=== PATIENT | female | born 1980 | race Caucasian/White ===

== ENCOUNTER 2019-08-07 09:30 | Emergency (ER) | payer BC, SELFPAY ==
[2019-08-07 09:32] VITALS: BP 120/84; PULSE 103; RESP 15; TEMP 36.1; O2SAT 98
[2019-08-07 09:51] LABS: Basophils Percent Auto 0.4 % (0.2-1.2); Eosinophils Percent Auto 0.4 % (0-4.4); Hematocrit 42.7 % (37.0-47.0); Hemoglobin 14.1 g/dL (12.0-15.0); Immature Granulocyte Absolute 0.02 K/mm3 (0.00-0.031); Immature Granulocyte Percent A 0.3 % (0-0.5); Lymphocytes Absolute Auto 1.65 K/mm3 (0.9-3.2); Lymphocytes Percent Auto 22.9 % (18.3-44.2); Mean Corpuscular Hemoglobin 29.1 pg (26-34); Mean Corpuscular Volume 88.2 fl (80-100); Monocytes Absolute Auto 0.4 K/mm3 (0.1-0.6); Monocytes Percent Auto 5.7 % (2.6-8.5); Neutrophils Absolute Auto 5.1 K/mm3 (1.3-6.7); Neutrophils Percent Auto 70.3 % (45.5-73.1); Platelet Count Result 235 k/mm3 (150-375); Red Blood Count 4.84 M/mm3 (4.2-5.4); Red Cell Distribution Width 13.4 % (11.5-14.5); White Blood Count 7.2 K/mm3 (4.5-10.0)
[2019-08-07 10:11] LABS: Alanine Aminotransferase 26 U/L (4-35); Albumin Level 4.5 g/dL (3.5-5.1); Alkaline Phosphatase 85 U/L (38-126); Aspartate Amino Transferase 27 U/L (14-36); Bilirubin,Total 0.4 mg/dL (0.2-1.3); Blood Urea Nitrogen 14 mg/dL (7-17); Calcium 9.5 mg/dL (8.4-10.2); Carbon Dioxide 25 mmol/L (22-30); Chloride 107 mmol/L (98-107); Estimated CRCL calculation 153 ml/min; Estimated Glomerular Filt Rate > 60; Glucose 102 mg/dL (65-105); Lipase 144 U/L (23-300); Sodium 143 mmol/L (137-145)
[2019-08-07 10:23] LABS: Add Urine Microscopic? YES; Appearance Urine Clear (Clear); Bilirubin Urine Negative (Negative); Blood Urine Negative (Negative); Color Urine Yellow (Yellow); Glucose Urine UA Negative (Negative); Ketones Urine Negative (Negative); Leukocyte Esterase Ur Negative LEU/UL (Negative); Nitrate Urine Negative (Negative); Protein Urine Negative (Negative); RBC Urine 0-2 /hpf (0-2); Specific Grav Ur 1.017 (1.001-1.035); Squamous Epithelial Cell Urine Occasional /hpf (Few); Urobilinogen Urine Negative mg/dL (<2.0); WBC Urine 0-3 /hpf
[2019-08-07 11:28] VITALS: BP 112/61; PULSE 88
[2019-08-07 11:30] VITALS: BP 124/81; PULSE 88
[2019-08-07 11:32] VITALS: BP 111/64; PULSE 90
--- NOTE | 2019-08-07 11:40 | ED.NAVMDI ---
HPI - Nausea/Vomiting/Diarrhea General Chief complaint: Nausea/Vomiting/Diarrhea Stated complaint: vomiting blood Time Seen by Provider: 08/07/19 11:39 Source: patient and RN notes reviewed Mode of arrival: ambulatory Limitations: no limitations History of Present Illness HPI Narrative: Pt is a 39 y/o female who presents to the ED with c/o hematemesis which began this morning. Pt states she has vomited twice this morning with blood in her emesis both times. She reports heavy blood in both episodes of her emesis. She states she drank alcohol and ate pizza which she believes could be causing her symptoms. Pt reports diffuse ABD pain shortly after emesis. Pt also reports nausea, but denies diarrhea, dizziness, syncope, or SOB. MD elicited complaint: other (hematemesis) Onset (ago): hour(s) (this morning) Description of vomiting: bloody Associated nausea: Yes Associated abdominal pain: Yes Location of pain: diffuse Radiation: does not radiate Pain consistency: constant Exacerbating factors: none Relieving factors: none Associated symptoms: nausea/vomiting Related Data Home Medications Medication Instructions Recorded Confirmed cholecalciferol (vitamin D3) 3,000 3,000 unit PO DAILY 07/24/19 unit tablet vits 75-iron 28 mg-folic pkg PO 07/24/19 acid 800 mcg-omega-3 oral combo pack valacyclovir 500 mg tablet 500 mg PO DAILY 07/24/19 Allergies Allergy/AdvReac Type Severity Reaction Status Date / Time latex Allergy Unknown Unknown Verified 07/24/19 13:00 sidra Allergy Unknown Swelling Verified 07/24/19 13:00 kiwi Allergy Itching Verified 08/07/19 09:37 Review of Systems Review of Systems: All systems reviewed & are unremarkable except as noted in HPI and below Respiratory: Respiratory: Denies dyspnea Gastrointestinal: Gastrointestinal: Reports abdominal pain (diffuse), Denies diarrhea, Reports nausea and Reports hematemesis Neurologic: Denies dizziness and Denies syncope PMFSH Social History Social History Smoking status: Former smoker Second hand tobacco smoke exposure: Yes Smoking end date: 06/21/11 Alcohol intake: current Substance use type: marijuana Gender identity (if verbalized by the patient): Female Exam Narrative: Exam Narrative: GENERAL: Well-appearing, well-nourished, and in no acute distress. HEAD: Normocephalic, atraumatic. EYES: PERRLA and EOMI. ENT: Nares clear, . Mucous membranes moist. NECK: Supple. CHEST: Clear to auscultation. No respiratory distress. HEART: Regular rate and rhythm. No murmur heard. Normal peripheral pulses. ABDOMEN: Soft, non tender, non distended, normal active bowel sounds. EXTREMITIES: Normal range of motion. No edema. SKIN: Warm, dry, no rash. NEURO: No focal deficits. Alert and oriented x3. PSYCH: Normal mood and affect. Course Course Emergency Course: Patient had no further episodes of nausea vomiting or hematemesis since Vital Signs Vital signs: Vital Signs Temperature 36.1 C L 08/07/19 09:32 Pulse Rate 103 H 08/07/19 09:32 Respiratory Rate 15 08/07/19 09:32 Blood Pressure 120/84 08/07/19 09:32 Pulse Oximetry 98 08/07/19 09:32 Temperature 36.1 C L 08/07/19 09:32 Pulse Rate 73 08/07/19 12:44 Respiratory Rate 16 08/07/19 12:44 Blood Pressure 141/71 H 08/07/19 12:44 Pulse Oximetry 100 08/07/19 12:44 MDM - Nausea/Vomiting/Diarrhea Lab Data Result diagrams: 08/07/19 09:42 08/07/19 09:42 Labs: Lab Results 08/07/19 08/07/19 08/07/19 Range/Units 09:42 09:42 09:51 WBC 7.2 (4.5-10.0) K/mm3 RBC 4.84 (4.2-5.4) M/mm3 Hgb 14.1 (12.0-15.0) g/dL Hct 42.7 (37.0-47.0) % MCV 88.2 (80-100) fl MCH 29.1 (26-34) pg MCHC 33.0 (32-36) g/dl RDW 13.4 (11.5-14.5) % Plt Count 235 (150-375) k/mm3 MPV 10.0 (7.4-10.4) fl Immature Gran % (Auto) 0.3 (0-0.5) % Neut % (Aut
[2019-08-07] MEDS: SODIUM CHLORIDE 0.9% IV 1,000 ML 999 ML IV CONT (12:08)
[2019-08-07] MEDS: PANTOPRAZOLE SODIUM IV 40 MG VIAL IV PUSH (12:08)
[2019-08-07] MEDS: ONDANSETRON INJ 4 MG/2 ML VIAL IV PUSH (12:09)
[2019-08-07 12:44] VITALS: BP 141/71; PULSE 73; RESP 16; O2SAT 100
--- NOTE | 2019-08-07 13:06 | PC.NURSE ---
denies nausea. states abdomen feels hot inside
[2019-08-07 14:08] VITALS: BP 126/71; PULSE 68; RESP 18; O2SAT 99
== END 2019-08-07 14:11 | disposition home or self-care (01) ==
PROVIDERS: Emergency Provider Family Medicine; PCP Family Medicine
DX: K29.70 Gastritis, unspecified, without bleeding (principal); Z87.891 Personal history of nicotine dependence
CPT/HCPCS: 36415; 80053; 81001; 81025; 83690; 85025; 96361; 96374; 96375; 99284; C9113; J2405; J7030

== ENCOUNTER 2019-10-31 06:05 | Outpatient (CLI) | payer BC, SELFPAY ==
[2019-10-31 18:34] LABS: SARS-CoV-2 RNA PCR Negative
== END 2019-10-31 06:06 | disposition home or self-care (01) ==
LOC: ANHCOVIDDT 06:09
PROVIDERS: PCP Family Medicine; Visit Provider Internal Medicine Gastroenterology
DX: Z01.818 Encounter for other preprocedural examination (principal); Z11.59 Encounter for screening for other viral diseases
CPT/HCPCS: 87635; C9803; U0003

== ENCOUNTER 2019-11-02 02:28 | Day surgery (SDC) | payer BC, SELFPAY ==
[2019-10-30 15:40] VITALS: BMI 41.6
[2019-11-02 07:13] VITALS: BP 111/69; PULSE 104; RESP 16; TEMP 36.4; O2SAT 97; BMI 41.6
[2019-11-02] MEDS: LACTATED RINGERS 1,000 ML 150 ML IV CONT (07:17)
--- NOTE | 2019-11-02 07:48 | WPDANESEPPF ---
Anes - Initial Pre Proc Eval Procedure: Operation Date: 11/02/19 08:00 Proposed Procedures p Esophagogastroduodenoscopy - Jase Cueto MD Date/Time: 11/02/19 07:48 Surgeon: Jase Cueto MD Pre Op Diagnosis: Hematemesis Patient Data Age: 39 Gender: F Height: 5 ft 4 in Weight: 110.1 kg Last Vital Signs Temp 36.4 C 11/02/19 07:13 Pulse 104 H 11/02/19 07:13 Resp 16 11/02/19 07:13 BP 111/69 11/02/19 07:13 Pulse Ox 97 11/02/19 07:13 Allergies Allergy/AdvReac Type Severity Reaction Status Date / Time kiwi Allergy Severe throat Verified 11/02/19 07:10 swelling and itching latex Allergy Severe swell and Verified 11/02/19 07:10 itchy in area touched sidra Allergy Severe Swelling Verified 11/02/19 07:10 in mouth Home Medications Medication Instructions Recorded Confirmed Type cholecalciferol (vitamin D3) 75 3,000 unit PO DAILY 07/24/19 11/02/19 History mcg (3,000 unit) tablet vits 75-iron 28 mg-folic 1 pkg PO DAILY 07/24/19 11/02/19 History acid 800 mcg-omega-3 oral combo pack valacyclovir 500 mg tablet 500 mg PO DAILY PRN 07/24/19 11/02/19 History esomeprazole magnesium [Nexium] 40 mg PO DAILY #30 cap 08/07/19 11/02/19 Rx ondansetron HCl [Zofran] 4 mg PO Q6H PRN #14 tablet 08/07/19 11/02/19 Rx Patient hx anesthesia problems: none Family hx anesthesia problems: none PMFSH Past Medical History Medical History AVM (arteriovenous malformation) Cerebral aneurysm Nephrolithiasis Family History Family History Father Family history of obesity Grandparent Carcinoma of colon Family history of malignant neoplasm of breast Diabetes mellitus Family history of malignant neoplasm of breast in first degree relative Other Family history of malignant neoplasm Family history of pancreatic cancer Social History Social History Smoking status: Former smoker Second hand tobacco smoke exposure: Yes Smoking end date: 06/21/11 Alcohol intake: current Substance use type: marijuana Gender identity (if verbalized by the patient): Female Anes - Eval Final PreProcedure Day of Procedure 11/02/19 07:48 Patient weight: morbidly obese Heart: regular rate and rhythm Lungs: clear to auscultation Airway: Mallampati scale class II Neurological: alert and oriented Last oral intake: >/= 8 hours ASA classification: III Emergent: no Anesthetic plan: proceed Anesthesia type and monitoring: general GIVS and standard monitoring Informed Consent: The patient's anesthetic plan and its attendant risks and benefits were discussed with the patient/family/POA. Questions were solicited and answers provided to the satisfaction of the patient/family/POA.
--- NOTE | 2019-11-02 08:04 | WPDGICN ---
Assessment and Plan Assessment and plan (1) Hematemesis: Code(s): K92.0 - Hematemesis Status: Acute Assessment and Plan: Patient has had several episodes of upper GI bleeding. Suspicious for possible ulcer disease cannot exclude a Tejal-Ferro tear at that time. Plan is to continue Nexium for now. An EGD will be performed further recommendations subsequently. GI Consult Note Consult date/time: 11/02/19 08:04 HPI: Adeel Brooks is a 39 year old female Seen in evaluation at the request of Dr. Yaneth Nichole. Patient reports vomiting episode several months ago. This was followed by bloody emesis. Patient has a distant history of coffee-ground emesis perhaps 6 months ago. She continues to have burning abdominal pain. Usually in the epigastric area. She has been treated with Nexium daily over the last month. With uncertain response to symptoms. Patient denies any recent bleeding. She is been tolerating diet fairly adequately presently. Review of Systems Review of Systems: All systems reviewed & are unremarkable except as noted in HPI and below PMFSH Past Medical History Medical History AVM (arteriovenous malformation) Cerebral aneurysm Nephrolithiasis Family History Family History Father Family history of obesity Grandparent Carcinoma of colon Family history of malignant neoplasm of breast Diabetes mellitus Family history of malignant neoplasm of breast in first degree relative Other Family history of malignant neoplasm Family history of pancreatic cancer Social History Social History Smoking status: Former smoker Second hand tobacco smoke exposure: Yes Smoking end date: 06/21/11 Alcohol intake: current Substance use type: marijuana Gender identity (if verbalized by the patient): Female Meds Home Medications and Allergies Home Medications Medication Instructions Recorded Confirmed Type cholecalciferol (vitamin D3) 75 3,000 unit PO DAILY 07/24/19 11/02/19 History mcg (3,000 unit) tablet vits 75-iron 28 mg-folic 1 pkg PO DAILY 07/24/19 11/02/19 History acid 800 mcg-omega-3 oral combo pack valacyclovir 500 mg tablet 500 mg PO DAILY PRN 02/03/20 05/14/20 History esomeprazole magnesium [Nexium] 40 mg PO DAILY #30 cap 08/07/19 11/02/19 Rx ondansetron HCl [Zofran] 4 mg PO Q6H PRN #14 tablet 08/07/19 11/02/19 Rx Allergies Allergy/AdvReac Type Severity Reaction Status Date / Time kiwi Allergy Severe throat Verified 11/02/19 07:10 swelling and itching latex Allergy Severe swell and Verified 11/02/19 07:10 itchy in area touched sidra Allergy Severe Swelling Verified 11/02/19 07:10 in mouth Vital Signs Vital Signs - 24 hr 11/02/19 07:13 Temperature 36.4 C Pulse Rate 104 H Respiratory Rate 16 Blood Pressure 111/69 Pulse Oximetry 97 Exam Narrative: Exam Narrative: Physical exam reveals patient to be alert. Vital signs are stable. HEENT exam is unremarkable. Lungs are clear to auscultation percussion. Heart is without murmur or extra sounds. Abdominal exam bowel sounds are present soft nontender with no hepatosplenomegaly.
[2019-11-02] MEDS: BENZOCAINE (*SP) 60 ML SPRAY CAN (HURRICAINE) 1 SPRAY MUCOUS MEM (08:20)
[2019-11-02 08:26] VITALS: BP 93/66; PULSE 68; RESP 20; O2SAT 98
[2019-11-02 08:36] VITALS: BP 100/56; PULSE 68; RESP 21; O2SAT 97
[2019-11-02 08:46] VITALS: BP 96/66; PULSE 59; RESP 21; O2SAT 97
== END 2019-11-02 08:58 | disposition home or self-care (01) ==
PROVIDERS: PCP Family Medicine; Visit Provider Internal Medicine Gastroenterology
PROC: 0DJ08ZZ Inspection of Upper Intestinal Tract, Via Natural or Artificial Opening Endoscopic (ICD-10-PCS; CPT 43235; principal; 2019-11-02 08:00)
DX: K92.0 Hematemesis (principal); Z87.891 Personal history of nicotine dependence; E66.01 Morbid (severe) obesity due to excess calories; Z68.41 Body mass index [BMI] 40.0-44.9, adult
CPT/HCPCS: 43239; 87081; J2704; J7120

== ENCOUNTER 2020-01-30 08:58 | Outpatient (CLI) | payer BC, SELFPAY ==
--- NOTE | ~2020-01-30 | US_ITS ---
US right upper quadrant DATE: 01/30/2020 09:35 INDICATION: Nausea TECHNIQUE: Real-time imaging of liver, pancreas, gallbladder areas COMPARISON: 12/20/[address] abdomen pelvis FINDINGS: No hepatic or pancreatic space-occupying mass lesion is evident. Normal hepatopedal portal venous flow direction. No gallstones or gallbladder wall thickening or pericholecystic fluid collection. Negative sonographi c Doll's sign. The common bile duct measures between 4 and 5 mm diameter, within normal range. IMPRESSION: No significant abnormality Reviewed, dictated and finalized at [facility]. Reviewed, dictated and finalized at location [facility]. IMPRESSION: No significant abnormality
== END 2020-01-30 08:59 | disposition home or self-care (01) ==
PROVIDERS: PCP Family Medicine; Visit Provider Internal Medicine Gastroenterology
DX: R11.0 Nausea (principal)
CPT/HCPCS: 76705

== ENCOUNTER 2020-02-15 13:37 | Outpatient (CLI) | payer BC, SELFPAY ==
--- NOTE | ~2020-02-15 | XR_ITS ---
EXAMINATION: XR knee LT 3V DATE: 02/15/2020 14:04 INDICATION: Left knee pain. TECHNIQUE: 3 views of left knee were obtained. COMPARISON: None. FINDINGS: Bone alignment is normal. No fracture. Joint spaces are well maintained. There is no knee j oint effusion. IMPRESSION: 1. Normal left knee. Reviewed, dictated and finalized at location [facility]. IMPRESSION: 1. Normal left knee.
== END 2020-02-15 13:38 | disposition home or self-care (01) ==
LOC: ANHIMG 13:41
PROVIDERS: PCP Family Medicine; Visit Provider Physician Assistant
DX: M25.569 Pain in unspecified knee (principal)
CPT/HCPCS: 73562

== ENCOUNTER → 2021-01-20 09:34 | Outpatient (CLI) | payer BC, SELFPAY ==
[2021-01-20 17:06] LABS: SARS-CoV-2 RNA PCR Positive
== END ==
PROVIDERS: PCP Family Medicine; Visit Provider Physician Assistant
DX: U07.1 COVID-19 (principal)
CPT/HCPCS: C9803; U0003; U0005

== ENCOUNTER 2021-03-21 12:55 | Outpatient (CLI) | payer BC, SELFPAY ==
--- NOTE | ~2021-03-21 | US_ITS ---
EXAMINATION: US pelvic complete w TV DATE: 03/21/2021 13:59 INDICATION: Vaginal bleeding during intercourse TECHNIQUE: Multiple transabdominal and endovaginal sonographic images of the pelvis were obtained. COMPARISON: None. FINDINGS: The uterus measures 8.5 x 4.0 x 3.4 cm. The endometrial complex measures 4 mm. The right ov austen measures 3.3 x 2.6 x 2.5 cm. The left ovary measures 2.8 x 2.0 x 2.2 cm. There is normal vascular flow in the ovaries. There is no free fluid in the pelvis. IMPRESSION: 1. No sonographic correlate for the patient's symptoms. Reviewed, dictated and finalized at location [facility].
== END 2021-03-21 12:56 | disposition home or self-care (01) ==
LOC: ANHIMG 12:57
PROVIDERS: PCP Family Medicine; Visit Provider Obstetrics & Gynecology
DX: N92.6 Irregular menstruation, unspecified (principal)
CPT/HCPCS: 76830; 76856

== ENCOUNTER → 2021-07-07 13:47 | Outpatient (CLI) | payer BC, SELFPAY ==
--- NOTE | ~2021-07-07 | MM_ITS ---
EXAMINATION: MM screening michael BI w atilio HISTORY: Screening TECHNIQUE: Craniocaudal and mediolateral oblique 3-D tomosynthesis images were obtained and synthetic 2-D images were generated. CAD analysis was submitted and interpreted. COMPARISON: No prior mammogram is available for comparison at this institution. BREAST PARENCHYMAL COMPOSITION: Breast composed of scattered areas of fibroglandular density FINDINGS: . There are masses in the lateral aspect of the right breast which are partially obscured b y fibroglandular tissue. There are no suspicious masses, calcifications or architectural distortion i n the left breast to suggest malignancy. IMPRESSION: 1. Right breast masses. 2. Additional mammographic views and possible breast ultrasound are recommended. BI-RADS Category 0: Incomplete: Needs additional imaging evaluation. Reviewed, dictated and finalized at location [facility]. RAL LEDGER ACCOUNTANT IMPRESSION: 1. Right breast masses. 2. Additional mammographic views and possible breast ultrasound are recommended . BI-RADS Category 0: Incomplete: Needs additional imaging evaluation.
== END ==
PROVIDERS: PCP Family Medicine; Visit Provider Obstetrics & Gynecology
DX: Z12.31 Encounter for screening mammogram for malignant neoplasm of breast (principal); R92.8 Other abnormal and inconclusive findings on diagnostic imaging of breast
CPT/HCPCS: 77063; 77067

== ENCOUNTER → 2021-07-22 08:19 | Outpatient (CLI) | payer BC, SELFPAY ==
--- NOTE | ~2021-07-22 | MMUS_ITS ---
EXAMINATION: MM diagnostic michael RT w atilio, US breast RT limited HISTORY: Follow-up right breast masses TECHNIQUE: Additional 3-D tomosynthesis images of the right breast were performed and synthetic 2-D i mages were generated. CAD analysis was submitted and interpreted. High resolution Limited right breas t ultrasound was performed. COMPARISON: 07/07/2021 BREAST PARENCHYMAL COMPOSITION: Breast composed of scattered areas of fibroglandular density FINDINGS: MAMMOGRAPHIC FINDINGS: There is a small mass anteriorly in the upper outer quadrant with circumscribed margins and central r adiolucency. There are 2 masses in the lower outer quadrant of the right breast posteriorly. ULTRASOUND: Limited right breast ultrasound: At 12:00, 1 cm from the nipple, there is an oval circumscribed hypoe choic mass with edge shadowing and no internal vascularity measuring 7 x 3 x 7 mm. At 7:00, 11 cm fro m the nipple, there is an oval hypoechoic mass measuring up to 6 mm with echogenic hilum, most likely benign intramammary lymph node. IMPRESSION: 1. Probable benign findings of the right breast. 2. Recommend 6 month follow-up diagnostic right mammogram and ultrasound BI-RADS category 3, probably benign findings. Reviewed, dictated and finalized at location [facility]. TENANT/DEPUTY IMPRESSION: 1. Probable benign findings of the right breast. 2. Recommend 6 month follow-up diagnostic right mammogram and ultrasound BI-RADS category 3, probably benign findings.
== END ==
PROVIDERS: PCP Family Medicine; Visit Provider Obstetrics & Gynecology
DX: R92.8 Other abnormal and inconclusive findings on diagnostic imaging of breast (principal)
CPT/HCPCS: 76642; 77061; 77065; G0279

== ENCOUNTER → 2022-01-21 08:51 | Outpatient (CLI) | payer BC, SELFPAY ==
--- NOTE | ~2022-01-21 | MMUS_ITS ---
EXAMINATION: MM diagnostic michael RT w atilio, US breast RT complete HISTORY: Follow-up right breast masses TECHNIQUE: Additional 3-D tomosynthesis images of the right breast were performed and synthetic 2-D i mages were generated. CAD analysis was submitted and interpreted. High resolution complete right suzy st ultrasound was performed. COMPARISON: Comparison to multiple prior studies sequentially, with oldest reviewed study dated 07/07. BREAST PARENCHYMAL COMPOSITION: Breast composed of scattered areas of fibroglandular density FINDINGS: MAMMOGRAPHIC FINDINGS: The right breast is stable. No new masses, calcifications or architectural distortion in the right br east to suggest malignancy. There is a stable appearing mass in the lower outer quadrant of the right breast with central lucency. ULTRASOUND: Complete US of all 4 quadrants of the right breast and retroareolar region was reviewed. At 12:00, 2. 5 cm from the nipple, there is an oval hypoechoic mass measuring 7 x 7 x 4 mm with mixed posterior at tenuation, parallel orientation and no internal vascularity. This mass appears unchanged from prior e xamination. At 7:00, 9 cm from the nipple there is an oval hypoechoic mass measuring 7 x 5 x 6 mm wit h parallel orientation, no significant posterior features and no internal vascularity without signifi cant change from prior examination allowing for technique. At 7:00, 9 cm from the nipple is an irregu lar shaped hypoechoic mass measuring 8 x 6 x 9 mm with posterior shadowing and no internal vascularit y,. At 7:00, 9 cm from the nipple there is an oval hypoechoic mass measuring 4 x 3 x 4 mm with parall el orientation, no posterior features and no internal vascularity. IMPRESSION: 1. New 9 mm hypoechoic mass of the right breast at 7:00, 9 cm from the nipple. 2. Ultrasound-guided right breast biopsy recommended. BI-RADS category 4, suspicious findings. Reviewed, dictated and finalized at location A. IMPRESSION: 1. New 9 mm hypoechoic mass of the right breast at 7:00, 9 cm from the nipple. 2. Ultrasound-guided right breast biopsy recommended. BI-RADS category 4, suspicious findings.
== END ==
PROVIDERS: PCP Family Medicine; Visit Provider Obstetrics & Gynecology
DX: R92.8 Other abnormal and inconclusive findings on diagnostic imaging of breast (principal)
CPT/HCPCS: 76641; 77061; 77065; G0279

== ENCOUNTER 2022-04-01 01:28 | Day surgery (SDC) | payer BC, SELFPAY ==
[2022-03-23 13:44] VITALS: BMI 41.2
--- NOTE | 2022-03-23 14:07 | PC.NURSE ---
Report to the Outpatient Waiting Room, entrance under the green pavilion located off [facility], at time _0600_ on date 04/01/22_. OR Time: _0730_. Time changes happen often and if your time is changed the preop area will call you the afternoon before. - You and your visitor will be asked to self-screen and do not enter if you have any COVID symptoms. - Only one visitor and NO children visitors are allowed at this time. - The patient visitor is requested to leave or wait in car when not with patient due to restrictions. - A mask is required within the hospital. Patients may have clear liquids (water, carbonated beverages, clear teas, apple juice) until 3 hours prior to surgery with a maximum of 20 ounces. - No food from midnight until time of surgery Take the following medications with a SIP of water the morning of surgery: _INHALER IF NEEDED Medications to discontinue per physician Date to take last dose Please no make-up, nail slovenian, hairspray, perfume, deodorant, or body powder the day of surgery. No jewelry (including any body piercings) or valuables the day of surgery, leave them at home. Please take a shower or bath the night before, or the morning of, surgery with an antibacterial soap. Wear comfortable, loose fitting clothing. Children are encouraged to wear pajamas. - Jewelry must be removed prior to entering the operating room. Rings and piercings that are not removed may be cut off. - The hospital will not accept responsibility for valuables. - Please leave all valuables, including medications, at home the day of surgery. If you are going home after surgery, a licensed industrial tractor driver must drive you home. - NO public transportation without another adult. - We recommend that an adult stay with you for 24 hours following discharge. - We also recommend that you do not drive, make important decision, drink alcoholic beverages, or take any drugs that were not prescribed by your health care provider for at least 24 hours after your discharge time. Follow any additional instructions given to you from your surgeon. If you or anyone in your household have experienced Covid symptoms in the past week, please notify your surgeon or the nurse liaison at the phone number below for possible testing. Telephone instructions given to _NELLA and asked if any additional questions and then verbalized understanding. Patient advised to call surgeon office or pre surgery nurse liaison [phone] if any additional questions.
[2022-04-01] MEDS: LACTATED RINGERS 1,000 ML 30 ML IV CONT (06:30)
[2022-04-01] MEDS: ACETAMINOPHEN 500 MG TABLET 1000 MG PO (06:30)
--- NOTE | 2022-04-01 07:05 | WPDANESEPPF ---
Anes - Initial Pre Proc Eval Procedure: Operation Date: 04/01/22 07:30 Proposed Procedures p Hysteroscopy, Dilation and Curettage, Possible Myosure - Harvey Vargas MD Date/Time: 04/01/22 07:05 Surgeon: Harvey Vargas MD Pre Op Diagnosis: abn uterine bleeding Patient Data Age: 41 Gender: F Height: 1.63 m Weight: 109 kg Allergies Allergy/AdvReac Type Severity Reaction Status Date / Time cashew nut Allergy Severe Rash Verified 03/23/22 14:27 kiwi Allergy Severe throat Verified 03/23/22 14:27 swelling and itching latex Allergy Severe swell and Verified 03/23/22 14:27 itchy in area touched sidra Allergy Severe Swelling Verified 03/23/22 14:27 in mouth Home Medications Medication Instructions Recorded Confirmed Type cholecalciferol (vitamin D3) 25 25 mcg PO DAILY 12/07/19 03/23/22 History mcg (1,000 unit) capsule ondansetron HCl 8 mg tablet 8 mg PO Q8H PRN nausea and 08/26/20 03/23/22 Rx vomiting #15 tabs albuterol sulfate 90 mcg/actuation 1 inh inhalation Q4H PRN shortness 07/29/21 03/23/22 Rx aerosol inhaler of breath or wheezing #8.5 grams sumatriptan succinate 100 mg See Rx Instructions PO .COMPLEX #9 11/10/21 03/23/22 Rx tablet (Imitrex) tabs valacyclovir 500 mg tablet 500 mg PO DAILY PRN Outbreak #90 02/20/22 03/23/22 Rx tabs Patient hx anesthesia problems: none Family hx anesthesia problems: none Results Review: All pre-operative results and documents have been reviewed as part of the pre-operative evaluation. [facility] Past Medical History Medical History Asthma, mild intermittent AVM (arteriovenous malformation) Cerebral aneurysm Migraine Nephrolithiasis Surgical History Surgical History H/O lithotripsy H/O removal of cyst S/P brain surgery Family History Family History Father Family history of obesity Grandparent Carcinoma of colon Family history of malignant neoplasm of breast Diabetes mellitus Family history of malignant neoplasm of breast in first degree relative Other Family history of malignant neoplasm Family history of pancreatic cancer Social History Social History Smoking packs per day: 0.25 Smoking cigarettes per day: 5.0 Years smoked: 20 Smoking pack-years: 5.00 Smoking status: Former smoker Tobacco type: cigarettes Second hand tobacco smoke exposure: No Smoking end date: 06/21/11 Alcohol intake: current Substance use: former Substance use type: marijuana Other substance usage details: EDIBLES Last use: 2012 Living arrangements: with family Gender identity (if verbalized by the patient): Female Spiritual care concerns: No Anes - Eval Final PreProcedure Day of Procedure 04/01/22 07:05 Patient weight: morbidly obese Heart: regular rate and rhythm Lungs: clear to auscultation Airway: Mallampati scale class II Neurological: alert and oriented Last oral intake: >/= 8 hours ASA classification: III Emergent: no Anesthetic plan: proceed Anesthesia type and monitoring: general GIVS and standard monitoring Results Review: All pre-operative results and documents have been reviewed as part of the pre-operative evaluation. Informed Consent: The patient's anesthetic plan and its attendant risks and benefits were discussed with the patient/family/POA. Questions were solicited and answers provided to the satisfaction of the patient/family/POA.
--- NOTE | 2022-04-01 07:12 | PM.IMHP ---
H&P: HPI History of Present Illness Date/Time: 04/01/22 07:12 Chief Complaint: Abnormal bleeding Narrative: Patient is a 41 y/o G with a history of intermittent abnormal bleeding for over a year. Mostly with intercourse. She has had a normal pelvic ultrasound has had normal pap, no cervicitis. She has had a normal endometrial biopsy. She does not want to do any hormonal treatment. Applied silver nitrate to friable endocervical cells which helped some temporarily. She was recommended for D and C hysteroscopy and may cauterize endocervical cells if needed. Review of Systems Review of Systems: All systems reviewed & are unremarkable except as noted in HPI and below Constitutional: Constitutional: Reports no additional constitutional complaints Eyes: Eyes: Reports no additional eye complaints Cardiovascular: Cardiovascular: Reports no additional cardiovascular complaints Respiratory: Respiratory: Reports no additional respiratory complaints Gastrointestinal: Gastrointestinal: Reports no additional gastrointestinal complaints Genitourinary: Genitourinary: Reports no additional female genitourinary complaints and Reports as per HPI Integumentary/Breasts: Skin/Breast: Reports system reviewed and no additional complaints, except as docu Neurologic: Reports system reviewed and no additional complaints, except as documented Psychiatric: Psychiatric: Reports no additional psychiatric complaints Hematologic/Lymphatic: Hematologic/Lymphatic: Reports no additional hematologic/lymphatic complaints [facility] Past Medical History Medical History Asthma, mild intermittent AVM (arteriovenous malformation) Cerebral aneurysm Migraine Nephrolithiasis Surgical History Surgical History H/O lithotripsy H/O removal of cyst S/P brain surgery Family History Family History Father Family history of obesity Grandparent Carcinoma of colon Family history of malignant neoplasm of breast Diabetes mellitus Family history of malignant neoplasm of breast in first degree relative Other Family history of malignant neoplasm Family history of pancreatic cancer Social History Social History Smoking packs per day: 0.25 Smoking cigarettes per day: 5.0 Years smoked: 20 Smoking pack-years: 5.00 Smoking status: Former smoker Tobacco type: cigarettes Second hand tobacco smoke exposure: No Smoking end date: 06/21/11 Alcohol intake: current Substance use: former Substance use type: marijuana Other substance usage details: EDIBLES Last use: 2012 Living arrangements: with family Gender identity (if verbalized by the patient): Female Spiritual care concerns: No Meds Home Medications and Allergies Home Medications Medication Instructions Recorded Confirmed Type cholecalciferol (vitamin D3) 25 25 mcg PO DAILY 12/07/19 03/23/22 History mcg (1,000 unit) capsule ondansetron HCl 8 mg tablet 8 mg PO Q8H PRN nausea and 08/26/20 03/23/22 Rx vomiting #15 tabs albuterol sulfate 90 mcg/actuation 1 inh inhalation Q4H PRN shortness 07/29/21 03/23/22 Rx aerosol inhaler of breath or wheezing #8.5 grams sumatriptan succinate 100 mg See Rx Instructions PO .COMPLEX #9 11/10/21 03/23/22 Rx tablet (Imitrex) tabs valacyclovir 500 mg tablet 500 mg PO DAILY PRN Outbreak #90 02/20/22 03/23/22 Rx tabs Allergies Allergy/AdvReac Type Severity Reaction Status Date / Time cashew nut Allergy Severe Rash Verified 03/23/22 14:27 kiwi Allergy Severe throat Verified 03/23/22 14:27 swelling and itching latex Allergy Severe swell and Verified 03/23/22 14:27 itchy in area touched sidra Allergy Severe Swelling Verified 03/23/22 14:27 in mouth Exam Const: Gener
--- NOTE | 2022-04-01 07:17 | WPDHPUPDATE1 ---
History and Physical Update Update Date/Time: 04/01/22 07:17 History and Physical has been reviewed, including an updated exam of the patient. There are NO changes in the patient's condition. Risks, benefits, and alternatives have been discussed and questions answered. Patient agrees to proceed with procedure.
[2022-04-01 07:30] VITALS: BP 90/52; PULSE 79; RESP 16; TEMP 37.1; O2SAT 100
[2022-04-01] MEDS: ceFAZolin 2 GM/D5W 50 ML 2 GM/50 ML BAG IVPB (07:32)
[2022-04-01] MEDS: KETOROLAC 30 MG/ML VIAL (*BKC) IV PUSH (07:44)
[2022-04-01] MEDS: LIDOCAINE HCL 1% PF 30 ML VIAL 10 ML INFILTRATE (07:51)
[2022-04-01 08:10] VITALS: BP 95/43; PULSE 69; RESP 14; O2SAT 99
--- NOTE | 2022-04-01 08:24 | W.PM.PROC2 ---
Procedure Note - Detailed Date of Procedure 04/01/22 Pre-op Diagnosis abn uterine bleeding Post-op Diagnosis Same Procedure Performed Diagnostic hysteroscopy dilation and curettage cauterization friable endocervix. Surgeon Harvey Vargas MD Anesthesia MAC and Local Indications Abnormal uterine bleeding Findings uterine cavity normal mildly proliferative endometrial lining no polyps uterine sound to 8.5 cm friable ectropion and endocervix. Description of Procedure After informed consent was obtained patient was taken to operating room and adequate IV sedation was administered. She was placed in lithotomy position and prepped and draped in sterile fashion. Attention was turned to the vagina. Speculum inserted. Single-tooth tenaculum placed on anterior lip of the cervix. 10 cc of 1% lidocaine plain was injected at the cervical vaginal interface that to 810 and 12:00 p.m.. The cervix was dilated to a 8 Espinal dilator. The hysteroscope was inserted the cavity was assessed and no abnormalities noted. The camera was removed. The endocervix was curetted. And a curettage was performed of the endometrial cavity. The ectropion and endocervical cells were friable therefore the area was cauterized. And a small area with silver nitrate was placed hemostasis was noted. The patient tolerated procedure well sponge count correct. She was taken to recovery in stable condition. Estimated Blood Loss 5 Drains No Packing No Pathology Yes ( 1. Endometrial curettings 2. Endocervical curetting) Complications No immediate complications Condition Stable Disposition Same day [facility] Billing Surgery - Charge Forward: Surgery Billing
[2022-04-01 08:40] VITALS: BP 90/47; PULSE 52; RESP 14
[2022-04-01 09:05] VITALS: BP 101/64; PULSE 51; RESP 14
== END 2022-04-01 09:25 | disposition home or self-care (01) ==
PROVIDERS: PCP Family Medicine; Visit Provider Obstetrics & Gynecology
PROC: 0U5B8ZZ Destruction of Endometrium, Via Natural or Artificial Opening Endoscopic (ICD-10-PCS; CPT 58563; principal; 2022-04-01 07:30)
DX: N93.9 Abnormal uterine and vaginal bleeding, unspecified (principal); J45.20 Mild intermittent asthma, uncomplicated; Z87.891 Personal history of nicotine dependence; F12.90 Cannabis use, unspecified, uncomplicated; Z79.51 Long term (current) use of inhaled steroids; E66.01 Morbid (severe) obesity due to excess calories; Z68.41 Body mass index [BMI] 40.0-44.9, adult
CPT/HCPCS: 58558; 57510; 88305; A9270; J0690; J1885; J2250; J2704; J3010; J7030; J7120

== ENCOUNTER 2023-07-02 00:01 | Day surgery (SDC) | payer BC, SELFPAY ==
[2023-06-28 10:08] VITALS: BMI 39.4
--- NOTE | 2023-06-28 10:14 | PC.NURSE ---
Report to the Outpatient Waiting Room, entrance under the green pavilion located off [facility], at time 0600 on date 07/02/23. Planned Procedure Time: 0730. Time changes happen often and if your time is changed the preop area will call you the afternoon before. - You and your visitor will be asked to self-screen and do not enter if you have any COVID symptoms. - A mask is optional within the hospital at this time. Patients may have clear liquids (water, carbonated beverages, clear teas, apple juice) until 3 hours prior to surgery with a maximum of 20 ounces. - No food from midnight until time of surgery Take the following medications with a SIP of water the morning of surgery: VALACYCLOVIR IF NEEDED DO NOT STOP ANY OF YOUR OTHER PRESCRIPTION MEDICATIONS PRIOR TO SURGERY ?EXCEPT THE FOLLOWING Medications to discontinue per physician: VITAMINS/SUPPLEMENTS Date to take last dose: 06/28/23 Please no make-up, nail maltese, hairspray, perfume, deodorant, or body powder the day of surgery. No jewelry (including any body piercings) or valuables the day of surgery, leave them at home. Please take a shower or bath the night before, or the morning of, surgery with an antibacterial soap. Wear comfortable, loose fitting clothing. - Jewelry must be removed prior to entering the operating room. Rings and piercings that are not removed may be cut off. - The hospital will not accept responsibility for valuables. - Please leave all valuables, including medications, at home the day of surgery. If you are going home after surgery, a licensed cpr ambulance driver must drive you home. - NO public transportation without another adult if you receive anesthesia. - We recommend that an adult stay with you for 24 hours following discharge. - We also recommend that you do not drive, make important decision, drink alcoholic beverages, or take any drugs that were not prescribed by your health care provider for at least 24 hours after your discharge time. Follow any additional instructions given to you from your surgeon. If you or anyone in your household have experienced Covid symptoms in the past week, please notify your surgeon or the nurse liaison at the phone number below for possible testing. Telephone instructions given to PT - NELLA BARAHONA and asked if any additional questions and then verbalized understanding. Patient advised to call surgeon office or pre surgery nurse liaison [phone] if any additional questions.
--- NOTE | 2023-07-02 05:37 | PM.IMHP ---
H&P: HPI History of Present Illness Date/Time: 07/02/23 05:37 Chief Complaint: Heavy periods and undesired fertility Narrative: Patient with a long history of menorrhagia and abnormal uterine bleeding. The intermenstrual bleeding resolved after D and C hysteroscopy in 2021 but she continues to have heavy menstrual flow with soiling. She declines hormonal options or IUD. She has undesired fertility and request sterilization at the same time. She has had normal endometrial biopsy and endometrial curettings last year. She has been informed of alternative options and risk benefits of those options. Review of Systems Review of Systems: All systems reviewed & are unremarkable except as noted in HPI and below Cardiovascular: Cardiovascular: Reports no additional cardiovascular complaints, Denies chest pain and Denies dyspnea Respiratory: Respiratory: Reports no additional respiratory complaints and Denies dyspnea Gastrointestinal: Gastrointestinal: Reports abdominal pain, Denies change in bowel habits, Denies diarrhea, Denies nausea and Denies vomiting Genitourinary: Genitourinary: Reports pelvic pain Musculoskeletal: Musculoskeletal: Reports back pain Integumentary/Breasts: Skin/Breast: Reports system reviewed and no additional complaints, except as docu Neurologic: Reports system reviewed and no additional complaints, except as documented [facility] Past Medical History Medical History Asthma, mild intermittent AVM (arteriovenous malformation) Cerebral aneurysm Migraine Nephrolithiasis Surgical History Surgical History H/O dilation and curettage H/O lithotripsy H/O removal of cyst S/P brain surgery Family History Family History Father Family history of obesity Heart disease Grandparent Carcinoma of colon Family history of malignant neoplasm of breast Diabetes mellitus Family history of malignant neoplasm of breast in first degree relative Other Family history of malignant neoplasm Family history of pancreatic cancer Social History Social History Smoking packs per day: 0.25 Smoking cigarettes per day: 5.0 Years smoked: 20 Smoking pack-years: 5.00 Smoking status: Former smoker Tobacco type: cigarettes Second hand tobacco smoke exposure: No Smoking end date: 06/21/13 Additional smoking assessment comments: FORMER SOCIAL SMOKER Alcohol intake: never Substance use: current Substance use type: marijuana Other substance usage details: EDIBLES Last use: 09/28/22 Lack of Transportation: No Lack of Food: Never True Current Housing: I Have Housing Concerned About Future Housing: No Difficulty Paying Gas/Electric Bills: No Difficulty Paying for Meds: No Currently Unemployed: No Education: Trade/Vocational Certificate Difficulty w/ Childcare or Family Care: No Living arrangements: with family Occupation/Education: occupation Gender identity (if verbalized by the patient): Female Sexual Orientation (if Verbalized by the Patient): Straight or Heterosexual Spiritual care concerns: No Meds Home Medications and Allergies Home Medications Medication Instructions Recorded Confirmed Type cholecalciferol (vitamin D3) 25 25 mcg PO DAILY 12/07/19 06/28/23 History mcg (1,000 unit) capsule ondansetron HCl 8 mg tablet 8 mg PO Q8H PRN nausea and 08/26/20 06/28/23 Rx vomiting #15 tabs albuterol sulfate 90 mcg/actuation 1 inh inhalation Q4H PRN shortness 07/29/21 06/28/23 Rx aerosol inhaler of breath or wheezing #8.5 grams sumatriptan succinate 100 mg See Rx Instructions PO .COMPLEX #9 11/10/21 06/28/23 Rx tablet (Imitrex) tabs sertraline 100 mg tablet 100 mg PO DAILY #90 tabs 02/09/23 06/28/23 Rx valacyclovir 500 mg tablet 500 mg PO [facility]
[2023-07-02 07:00] VITALS: BP 99/84; PULSE 82; RESP 14; TEMP 36.8; O2SAT 97
[2023-07-02] MEDS: ACETAMINOPHEN 500 MG TABLET 1000 MG PO (07:00)
[2023-07-02] MEDS: KETOROLAC 15 MG/ML VIAL (*BKC) IV PUSH (07:00)
--- NOTE | 2023-07-02 07:20 | WPDHPUPDATE1 ---
History and Physical Update Update Date/Time: 07/02/23 07:20 History and Physical has been reviewed, including an updated exam of the patient. There are NO changes in the patient's condition. Risks, benefits, and alternatives have been discussed and questions answered. Patient agrees to proceed with procedure.
--- NOTE | 2023-07-02 07:25 | WPDANESEPPF ---
Anes - Initial Pre Proc Eval Procedure: Operation Date: 07/02/23 07:30 Proposed Procedures p Hysteroscopy Dilation and Curettage with Sena Endometrial Ablation, - Harvey Vargas MD s Bilateral Laparoscopic Salpingectomy - Harvey Vargas MD Date/Time: 07/02/23 07:25 Surgeon: Harvey Vargas MD Pre Op Diagnosis: Menorrhagia, desires sterilization Patient Data Age: 43 Gender: F Height: 1.63 m Weight: 101.5 kg Last Vital Signs Temp 36.8 C 07/02/23 07:00 Pulse 82 07/02/23 07:00 Resp 14 07/02/23 07:00 BP 99/84 L 07/02/23 07:00 Pulse Ox 97 07/02/23 07:00 O2 Del Method Room Air 07/02/23 07:00 Allergies Allergy/AdvReac Type Severity Reaction Status Date / Time cashew nut Allergy Severe Rash Verified 07/02/23 07:23 kiwi Allergy Severe throat Verified 07/02/23 07:23 swelling and itching latex Allergy Severe swell and Verified 07/02/23 07:23 itchy in area touched sidra Allergy Severe Swelling Verified 07/02/23 07:23 in mouth Home Medications Medication Instructions Recorded Confirmed Type cholecalciferol (vitamin D3) 25 25 mcg PO DAILY 12/07/19 06/28/23 History mcg (1,000 unit) capsule ondansetron HCl 8 mg tablet 8 mg PO Q8H PRN nausea and 08/26/20 06/28/23 Rx vomiting #15 tabs albuterol sulfate 90 mcg/actuation 1 inh inhalation Q4H PRN shortness 07/29/21 06/28/23 Rx aerosol inhaler of breath or wheezing #8.5 grams sumatriptan succinate 100 mg See Rx Instructions PO .COMPLEX #9 11/10/21 06/28/23 Rx tablet (Imitrex) tabs sertraline 100 mg tablet 100 mg PO DAILY #90 tabs 02/09/23 06/28/23 Rx valacyclovir 500 mg tablet 500 mg PO DAILY PRN Outbreak #90 03/22/23 06/28/23 Rx tabs Lactobacillus acidophilus 10 10,000 mmu cells PO DAILY 06/28/23 06/28/23 History billion cell capsule (Probiotic) Patient hx anesthesia problems: none Family hx anesthesia problems: none Results Review: All pre-operative results and documents have been reviewed as part of the pre-operative evaluation. [facility] Past Medical History Medical History Asthma, mild intermittent AVM (arteriovenous malformation) Cerebral aneurysm Migraine Nephrolithiasis Surgical History Surgical History H/O dilation and curettage H/O lithotripsy H/O removal of cyst S/P brain surgery Family History Family History Father Family history of obesity Heart disease Grandparent Carcinoma of colon Family history of malignant neoplasm of breast Diabetes mellitus Family history of malignant neoplasm of breast in first degree relative Other Family history of malignant neoplasm Family history of pancreatic cancer Social History Social History Smoking packs per day: 0.25 Smoking cigarettes per day: 5.0 Years smoked: 20 Smoking pack-years: 5.00 Smoking status: Former smoker Tobacco type: cigarettes Second hand tobacco smoke exposure: No Smoking end date: 06/21/13 Additional smoking assessment comments: FORMER SOCIAL SMOKER Alcohol intake: never Substance use: current Substance use type: marijuana Other substance usage details: EDIBLES Last use: 09/28/22 Lack of Transportation: No Lack of Food: Never True Current Housing: I Have Housing Concerned About Future Housing: No Difficulty Paying Gas/Electric Bills: No Difficulty Paying for Meds: No Currently Unemployed: No Education: Trade/Vocational Certificate Difficulty w/ Childcare or Family Care: No Living arrangements: with family Occupation/Education: occupation Gender identity (if verbalized by the patient): Female Sexual Orientation (if Verbalized by the Patient): Straight or Heterosexual Spiritual care concerns: No Anes
[2023-07-02] MEDS: LACTATED RINGERS 1,000 ML 30 ML IV CONT ×2 (07:30→08:37)
[2023-07-02] MEDS: ceFAZolin 2 GM/D5W 50 ML 2 GM/50 ML BAG IVPB (07:30)
[2023-07-02] MEDS: SCOPOLAMINE 1 MG PATCH 1 PATCH TRANSDERM (07:30)
[2023-07-02] MEDS: BUPivacaine HCL 0.5% PF 30 ML VIAL INFILTRATE (08:07)
--- NOTE | 2023-07-02 08:35 | P.OP_ITS ---
Procedure Note - Detailed Date of Procedure 07/02/23 Pre-op Diagnosis Menorrhagia, desires sterilization Post-op Diagnosis Same Procedure Performed Laparoscopic bilateral salpingectomy Hysteroscopy with attempted endometrial ablation unsuccessful Surgeon Harvey Vargas MD Anesthesia General Indications Undesired fertility and menorrhagia Findings Normal pelvis normal fallopian tubes and ovaries normal appearing uterus. During hysteroscopy the uterus sounded to 8 cm the cervical length was 3.5 cm therefore uterine length was 4.5 cm. The uterine cavity was normal it did have a narrow appearance. The Sena apparatus would not deploy a attempted several attempts and the arms were not deployed therefore unable to perform the ablation. Description of Procedure After informed consent was obtained patient was taken to the operating room and general endotracheal anesthesia was administered. She was placed in low lithotomy need prep prepped sterile fashion. Attention was turned to the vagina speculum inserted single-tooth tenaculum placed on anterior lip of the cervix. Hemlock uterine manipulator placed into the cervical canal. The speculum was removed. Attention was then turned to the abdomen. 0.5% Marcaine was injected subcutaneously. A vertical incision was made at the umbilicus and a Veress needle was inserted into the abdomen confirmation into the abdomen obtained with free flow of fluid and normal peritoneal pressures. A pneumoperitoneum of 15 mm per mercury was obtained. The 5 mm port was inserted under laparoscopic visualization. Patient was placed in Trendelenburg position. Attention was turned to the left side of the abdomen and 0.5% Marcaine was injected subcutaneously and a 5 mm port was inserted under laparoscopic visualization. The pelvic organs were visualized. Attention was turned to the right side of the abdomen and another 5 mm port was inserted under laparoscopic visualization. Using the LigaSure the right fallopian tube was excised to near the entrance to the uterus. This was removed through the port. Attention was then turned to the left fallopian tube which was grabbed at the distal end and cauterized from the mesial salpinx to within a cm of the entrance to the entrance to the uterus. The fallopian tube was removed through the 5 mm port. Hemostasis was noted at both sites. Patient was taken out of Trendelenburg position the pneumoperitoneum was released and the skin incisions were closed in a subcuticular fashion with 4 O Vicryl. Attention was turned to the vagina. Speculum was inserted. The uterine manipulator was removed. The uterus was sounded to 8 cm. The cervix was dilated to an 8 Espinal dilator. The cervical length was 3.5 cm. The hysteroscope was inserted into the cavity. The findings were a normal uterine cavity. The hysteroscope was removed. The Sena ablation instrument was inserted into the cavity. The arms would not deploy. The apparatus was removed and the cavity was resounded with same measurements. Attempted lower length settings with insertion and the arms would not deploy. The cavity was inspected again with the hysteroscope. No perforations but you could see where the arms made a slight indentation. The ablation attempt was discontinued. Since the arms would not deploy. Estimated Blood Loss 5 Drains No Packing No Pathology Yes (Right and left fallopian tube) Complications No immediate complications Condition Stable Disposition Observation [facility] Billing Surgery - Charge Forward: Surgery Billing
[2023-07-02 08:37] VITALS: BP 109/72; PULSE 71; RESP 16; TEMP 36.3; O2SAT 98
[2023-07-02 08:50] VITALS: BP 110/64; PULSE 60; RESP 14; O2SAT 100
[2023-07-02 09:05] VITALS: BP 110/62; PULSE 80; RESP 12; O2SAT 97
[2023-07-02 09:20] VITALS: BP 99/64; PULSE 66
[2023-07-02 09:50] VITALS: BP 104/61; PULSE 66
== END 2023-07-02 09:56 | disposition home or self-care (01) ==
PROVIDERS: PCP Family Medicine; Visit Provider Obstetrics & Gynecology
PROC: 0U5B8ZZ Destruction of Endometrium, Via Natural or Artificial Opening Endoscopic (ICD-10-PCS; CPT 58563; principal; 2023-07-02 07:30)
PROC: (CPT 49320; 2023-07-02 07:30)
DX: N92.0 Excessive and frequent menstruation with regular cycle (principal); Z30.2 Encounter for sterilization; J45.20 Mild intermittent asthma, uncomplicated; Z79.51 Long term (current) use of inhaled steroids; Z87.891 Personal history of nicotine dependence; F12.90 Cannabis use, unspecified, uncomplicated; E66.9 Obesity, unspecified; Z68.38 Body mass index [BMI] 38.0-38.9, adult; Z53.8 Procedure and treatment not carried out for other reasons
CPT/HCPCS: 58661; 58563; 88302; A9270; J0330; J0690; J1100; J1885; J2250; J2405; J2704; J3010; J7030; J7120

== ENCOUNTER 2023-12-20 02:12 | Day surgery (SDC) | payer BC, SELFPAY ==
[2023-12-07 14:27] VITALS: BMI 38.2
--- NOTE | 2023-12-07 14:40 | PC.NURSE ---
Report to the Outpatient Waiting Room, entrance under the green pavilion located off [facility], at time _1030__ on date __12/20/23 . Planned Procedure Time: _1230_. PACK A SMALL OVERNIGHT BAG AND LEAVE IN THE CAR Time changes happen often and if your time is changed the preop area will call you the afternoon before. - You and your visitor will be asked to self-screen and do not enter if you have any COVID symptoms. - A mask is optional within the hospital at this time. -VISITING HOURS 8AM-8PM Patients may have clear liquids (water, carbonated beverages, clear teas, apple juice) until 3 hours prior to surgery (0830 AM) with a maximum of 20 ounces. - No food from midnight until time of surgery - Infants may have breast milk until 4 hours before surgery, formula 6 hours prior to surgery. - Children will be allowed to drink immediately following surgery. If applicable, please bring a bottle or sippy cup to assist with drinking. Juice, water, soda, and popsicles are readily available. For infants on formula, please bring formula the day of surgery. Pacifiers are allowed. Take the following medications with a SIP of water the morning of surgery: ___IMITREX IF NEEDED DO NOT STOP ANY OF YOUR OTHER PRESCRIPTION MEDICATIONS PRIOR TO SURGERY ?EXCEPT THE FOLLOWING Medications to discontinue per ANESTHESIA - _VITAMINS/SUPPLEMENTS 3 DAYS PRIOR TO SURGERY, Date to take last dose 12/16/23_ Please no make-up, nail icelandic, hairspray, perfume, deodorant, or body powder the day of surgery. No jewelry (including any body piercings) or valuables the day of surgery, leave them at home. Please take a shower or bath the night before, or the morning of, surgery with an antibacterial soap. Wear comfortable, loose fitting clothing. Children are encouraged to wear pajamas. - Jewelry must be removed prior to entering the operating room. Rings and piercings that are not removed may be cut off. - The hospital will not accept responsibility for valuables. - Please leave all valuables, including medications, at home the day of surgery. If you are going home after surgery, a licensed furniture delivery driver must drive you home. - NO public transportation without another adult if you receive anesthesia. - We recommend that an adult stay with you for 24 hours following discharge. - We also recommend that you do not drive, make important decision, drink alcoholic beverages, or take any drugs that were not prescribed by your health care provider for at least 24 hours after your discharge time. For Pediatric surgeries, we recommend two adults accompany the child home. Follow any additional instructions given to you from your surgeon. If you or anyone in your household have experienced Covid symptoms in the past week, please notify your surgeon or the nurse liaison at the phone number below for possible testing. Telephone instructions given to ____PT and asked if any additional questions and then verbalized understanding. Patient advised to call surgeon office or pre surgery nurse liaison [phone] if any additional questions.
--- NOTE | 2023-12-19 07:50 | PM.IMHP ---
H&P: HPI History of Present Illness Date/Time: 12/19/23 07:50 Chief Complaint: stress incontinence Narrative: she is undergoing hysterectomy for dysfunctional uterine bleeding. She would like a concomitant stress incontinence procedure Review of Systems Review of Systems: All systems reviewed & are unremarkable except as noted in HPI and below PMFSH Past Medical History Medical History Asthma, mild intermittent AVM (arteriovenous malformation) Cerebral aneurysm Migraine Nephrolithiasis Surgical History Surgical History H/O dilation and curettage H/O lithotripsy H/O removal of cyst History of bilateral salpingectomy S/P brain surgery Family History Family History Father Family history of obesity Heart disease Grandparent Carcinoma of colon Family history of malignant neoplasm of breast Diabetes mellitus Family history of malignant neoplasm of breast in first degree relative Other Family history of malignant neoplasm Family history of pancreatic cancer Social History Social History Smoking packs per day: 0.25 Smoking cigarettes per day: 5.0 Years smoked: 20 Smoking pack-years: 5.00 Smoking status: Former smoker Tobacco type: cigarettes Second hand tobacco smoke exposure: No Smoking end date: 06/21/13 Additional smoking assessment comments: FORMER SOCIAL SMOKER Alcohol intake: current Alcohol use details: HEAVY PRIOR TO 2019 - NOW MAYBE 2 MONTH Substance use: current Substance use type: marijuana Other substance usage details: EDIBLES NIGHTLY FOR SLEEP Last use: 12/06/23 Lack of Transportation: No Lack of Food: Never True Current Housing: I Have Housing Concerned About Future Housing: No Difficulty Paying Gas/Electric Bills: No Difficulty Paying for Meds: No Currently Unemployed: No Education: Trade/Vocational Certificate Difficulty w/ Childcare or Family Care: No Living arrangements: with family Occupation/Education: occupation Gender identity (if verbalized by the patient): Female Sexual Orientation (if Verbalized by the Patient): Straight or Heterosexual Spiritual care concerns: No Meds Home Medications and Allergies Home Medications Medication Instructions Recorded Confirmed Type cholecalciferol (vitamin D3) 25 25 mcg PO DAILY 12/07/19 12/07/23 History mcg (1,000 unit) capsule ondansetron HCl 8 mg tablet 8 mg PO Q8H PRN nausea and 08/26/20 12/07/23 Rx vomiting #15 tabs sumatriptan succinate 100 mg See Rx Instructions PO .COMPLEX #9 11/10/21 12/07/23 Rx tablet (Imitrex) tabs valacyclovir 500 mg tablet 500 mg PO DAILY PRN Outbreak #90 03/22/23 12/07/23 Rx tabs Lactobacillus acidophilus 10 10,000 mmu cells PO DAILY 06/28/23 12/07/23 History billion cell capsule (Probiotic) sertraline 100 mg tablet 150 mg PO DAILY 90 days #135 tabs 10/04/23 12/07/23 Rx Fish Oil 1 tab-cap DAILY 12/07/23 12/07/23 History Allergies Allergy/AdvReac Type Severity Reaction Status Date / Time cashew nut Allergy Severe Rash Verified 12/07/23 14:24 kiwi Allergy Severe throat Verified 12/07/23 14:24 swelling and itching latex Allergy Severe swell and Verified 12/07/23 14:24 itchy in area touched sidra Allergy Severe Swelling Verified 12/07/23 14:24 in mouth Exam Narrative: no acute distress normal breathing alert and orient x3 urethral hypermobility is documented Assessment and Plan Assessment and plan (1) ROSENDO (stress urinary incontinence, female): Code(s): N39.3 - Stress incontinence (female) (male) Status: Acute Assessment and Plan: plan for urethral sling. Understands risks of bleeding, infection, damage to surrounding organs, damage
[2023-12-20] VITALS (11 sets, daily range): BP systolic 104–151; BP diastolic 55–88; PULSE 56–88; RESP 10–80; TEMP 36.5–36.8; O2SAT 94–99; BMI 37.8
--- NOTE | 2023-12-20 07:15 | WPDHPUPDATE1 ---
History and Physical Update Update Date/Time: 12/20/23 07:15 History and Physical has been reviewed, including an updated exam of the patient. There are NO changes in the patient's condition. Risks, benefits, and alternatives have been discussed and questions answered. Patient agrees to proceed with procedure.
[2023-12-20] MEDS: LACTATED RINGERS 1,000 ML 30 ML IV CONT ×2 (11:27→15:19)
[2023-12-20] MEDS: SCOPOLAMINE 1 MG PATCH 1 PATCH TRANSDERM (11:32)
[2023-12-20] MEDS: KETOROLAC 15 MG/ML VIAL (*BKC) IV PUSH (11:32)
[2023-12-20] MEDS: ACETAMINOPHEN 500 MG TABLET 1000 MG PO (11:32)
--- NOTE | 2023-12-20 11:47 | WPDANESEPPF ---
Anes - Initial Pre Proc Eval Procedure: Operation Date: 12/20/23 12:30 Proposed Procedures p Urethral Sling, - Umang So MD s Robotic Laparopscopic Supracervical Hysterectomy - Harvey Vargas MD Date/Time: 12/20/23 11:47 Surgeon: Umang So MD Pre Op Diagnosis: stress incont Patient Data Age: 43 Gender: F Height: 1.63 m Weight: 99.85 kg Last Vital Signs Temp 36.5 C 12/20/23 11:20 Pulse 68 12/20/23 11:20 BP 108/55 L 12/20/23 11:20 Pulse Ox 98 12/20/23 11:20 O2 Del Method Room Air 12/20/23 11:20 Allergies Allergy/AdvReac Type Severity Reaction Status Date / Time cashew nut Allergy Severe Rash Verified 12/07/23 14:24 kiwi Allergy Severe throat Verified 12/07/23 14:24 swelling and itching latex Allergy Severe swell and Verified 12/07/23 14:24 itchy in area touched sidra Allergy Severe Swelling Verified 12/07/23 14:24 in mouth Home Medications Medication Instructions Recorded Confirmed Type cholecalciferol (vitamin D3) 25 25 mcg PO DAILY 12/07/19 12/07/23 History mcg (1,000 unit) capsule ondansetron HCl 8 mg tablet 8 mg PO Q8H PRN nausea and 08/26/20 12/07/23 Rx vomiting #15 tabs sumatriptan succinate 100 mg See Rx Instructions PO .COMPLEX #9 11/10/21 12/07/23 Rx tablet (Imitrex) tabs valacyclovir 500 mg tablet 500 mg PO DAILY PRN Outbreak #90 03/22/23 12/07/23 Rx tabs Lactobacillus acidophilus 10 10,000 mmu cells PO DAILY 06/28/23 12/07/23 History billion cell capsule (Probiotic) sertraline 100 mg tablet 150 mg PO DAILY 90 days #135 tabs 10/04/23 12/07/23 Rx Fish Oil 1 tab-cap DAILY 12/07/23 12/07/23 History Patient hx anesthesia problems: none Family hx anesthesia problems: none Results Review: All pre-operative results and documents have been reviewed as part of the pre-operative evaluation. [facility] Past Medical History Medical History Asthma, mild intermittent AVM (arteriovenous malformation) Cerebral aneurysm Migraine Nephrolithiasis Surgical History Surgical History H/O dilation and curettage H/O lithotripsy H/O removal of cyst History of bilateral salpingectomy S/P brain surgery Family History Family History Father Family history of obesity Heart disease Grandparent Carcinoma of colon Family history of malignant neoplasm of breast Diabetes mellitus Family history of malignant neoplasm of breast in first degree relative Other Family history of malignant neoplasm Family history of pancreatic cancer Social History Social History Smoking packs per day: 0.25 Smoking cigarettes per day: 5.0 Years smoked: 20 Smoking pack-years: 5.00 Smoking status: Former smoker Tobacco type: cigarettes Second hand tobacco smoke exposure: No Smoking end date: 06/21/13 Additional smoking assessment comments: FORMER SOCIAL SMOKER Alcohol intake: current Alcohol use details: HEAVY PRIOR TO 2019 - NOW MAYBE 2 MONTH Substance use: current Substance use type: marijuana Other substance usage details: EDIBLES NIGHTLY FOR SLEEP Last use: 12/06/23 Lack of Transportation: No Lack of Food: Never True Current Housing: I Have Housing Concerned About Future Housing: No Difficulty Paying Gas/Electric Bills: No Difficulty Paying for Meds: No Currently Unemployed: No Education: Trade/Vocational Certificate Difficulty w/ Childcare or Family Care: No Living arrangements: with family Occupation/Education: occupation Gender identity (if verbalized by the patient): Female Sexual Orientation (if Verbalized by the Patient): Straight or Heterosexual Spiritual care concerns: No Anes - Eval Final PreProcedure Day of Procedure 12/20/23 11:47 Melina
[2023-12-20] MEDS: HEPARIN SODIUM 5,000 UNITS/ML VIAL 5000 UNITS SUB-Q (12:02)
--- NOTE | 2023-12-20 12:16 | WPDHPUPDATE1 ---
History and Physical Update Update Date/Time: 12/20/23 12:16 History and Physical has been reviewed, including an updated exam of the patient. There are NO changes in the patient's condition. Risks, benefits, and alternatives have been discussed and questions answered. Patient agrees to proceed with procedure.
--- NOTE | 2023-12-20 12:58 | SUR.PREOP ---
pt received sq heparin per verbal order by Dr. Vargas
[2023-12-20] MEDS: ceFAZolin 2 GM/D5W 50 ML 2 GM/50 ML BAG IVPB (13:00)
--- NOTE | 2023-12-20 13:47 | P.OP_ITS ---
Procedure Note - Detailed Date of Procedure 12/20/23 Pre-op Diagnosis stress incontinence Post-op Diagnosis Same Procedure Performed mid urethral sling cystoscopy Surgeon Umang So MD Anesthesia General Indications This is a female with confirm stress urinary incontinence. She desires surgical correction. She understands the risks of bleeding, infection, injury to the urinary tract, vaginal mesh extrusion, urinary tract mesh erosion, obstructive voiding requiring a secondary procedure, hip and leg pain, dyspareunia, inability to improve overactive bladder symptoms. She agrees to proceed. we are doing this in conjunction with hysterectomy for dysfunctional uterine bleeding Description of Procedure She was correctly identified. Informed consent obtained. She was brought the operating room. She was given appropriate anesthesia. She was given appropriate perioperative antibiotics. A time-out performed. I marked out the site of the inner thigh incisions. I anesthetized the skin and made those incisions. I anesthetized the anterior vaginal wall over the mid urethra. I made a 1 cm incision. I dissected out laterally taking great care not to injure the refilled vaginal wall. I passed the helical trocars. First on the left. Then on the right. I did this from the thigh incision towards the vaginal incision. The sling was connected to the trocars and brought out through the thigh incision. I tensioned the sling appropriately. I cut and the plastic sheaths. I then closed the incision with 2 0 Vicryl. On cystoscopy there is no tumors or surgical artifact. There was no surgical artifact in the urethra. I cut the excess sling material. Close incisions with glue. She was awakened and transferred to the PACU in stable condition. she was then turned over to her cloth cutting machine operator for her hysterectomy Implants Urethral sling Estimated Blood Loss 30 Drains No Packing No Pathology None sent Complications No immediate complications Condition Stable Disposition PACU
[2023-12-20] MEDS: BUPIVACAINE/EPINEPHRINE 0.5% 10 ML VIAL 30 ML INFILTRATE (14:15)
--- NOTE | 2023-12-20 15:01 | PM.OP ---
Procedure Note - Brief Procedure Note - Brief Date of procedure: 12/20/23 abnormal uterine bleeding Post-op diagnosis: Same Procedure performed: Laparoscopic robotic assisted vaginal hysterectomy Lysis of adhesions. Surgeon: Harvey Vargas MD Findings: small subserosal fibroid,adhesions of pericolonic fat to left side wall, small endometriosis implants anterior and posterior cul de sac Estimated blood loss (mL): 20 IV fluids (mL): 800 Urine output (mL): 50 Drains: No Packing: No Pathology: Yes (uterus and cervix) Complications: No immediate complications Condition: Stable Disposition: PACU
[2023-12-20] MEDS: fentaNYL CITRATE INJ (*CRX) 100 MCG/2 ML VIAL 25 MCG IV PUSH ×3 (15:33→15:51)
[2023-12-20] MEDS: HYDROmorphone HCL INJ (*CRX) 1 MG/ML SYR 0.5 MG IV PUSH ×2 (16:26→16:44)
[2023-12-20] MEDS: DEXTROSE 5%/0.45% SOD CHL 1,000 ML 125 ML IV CONT (17:33)
[2023-12-20] MEDS: MORPHINE SULFATE (*CRX) 4 MG/ML INJ IV PUSH ×2 (17:34→23:05)
[2023-12-20] MEDS: SIMETHICONE 80 MG TAB.CHEW PO (17:34)
[2023-12-20] MEDS: SENNA/DOCUSATE SODIUM TABLET 2 TAB PO (23:00)
[2023-12-20] MEDS: SERTRALINE HCL 50 MG TABLET 150 MG PO (23:00)
[2023-12-21 01:23] VITALS: BP 118/60
[2023-12-21 04:18] VITALS: BP 122/65; PULSE 58; RESP 20; TEMP 36.8; O2SAT 98
--- NOTE | 2023-12-21 06:23 | W.PM.PROC2 ---
Procedure Note - Detailed Date of Procedure 12/21/23 Pre-op Diagnosis abnormal uterine bleeding Post-op Diagnosis Same Procedure Performed Robotic assisted laparoscopic total hysterectomy Surgeon Harvey Vargas MD Pocket Grinder Operator Jeremias Anesthesia General Indications Patient with long history of abnormal bleeding and menorrhagia. She declines hormonal options. Attempted endometrial ablation in the past. She desires definitive treatment, Findings Small subserosal fibroid anteriorly, adhesion of pericolic fat to left pelvic sidewall. Small endometriosis implants cauterized. Description of Procedure After informed consent was obtained she was taken to the operating room and general endotracheal anesthesia was administered. She was placed in low lithotomy position. An exam under anesthesia was performed. She was and prepped and draped in sterile fashion. Saba catheter placed by Dr. So. Dr. So completed his part of procedure.5% marcaine injected subcutaneously 2 cm above umbilicus, horizontal incision made. Verres needle inserted. Confirmation into abdomen with normal peritoneal pressures. A Pneumoperitoneum of 15 mm per mercury was obtained. Marcaine injected at right lateral port sight. A small incision was made approximately 6 cm lateral to the port on the left side of the port. A size 8mm robotic port was inserted under laparoscopic visualization into the abdomen on the left side. Robotic port was inserted on the right side and the clinical trials assistant port inserted. At this time Dr. So completed his procedure. Attention was turned to vagina. speculum was inserted. Single-tooth tenaculum placed on anterior lip of the cervix the uterus sounded to 9 cm. The cervix was dilated to a 8 Espinal dilator. A size 8 uterine manipulator and 3.0 colp cup was applied. Patient was placed in Trendelenburg position. Robotic arms attached to ports. Attention turned to console. The right round ligament ligated. The anterior leaf of broad ligament dissected. The vesicouterine peritoneum dissected from the cervix. The right ovarian ligament was ligated. The a posterior leaf of the broad ligament was further dissected. The ascending uterine vessels on the right were ligated. The uterine vessels were ligated. Attention was turned to the left round ligament which was ligated and the anterior leaf of the broad ligament was dissected anteriorly. The rest of the vesicouterine peritoneum was dissected off of the uterus. Once the bladder was dissected below the colp cup then the posterior leaf of the broad ligament was further dissected. The ovarian ligament was ligated. The ascending uterine vessels were ligated. The uterine arteries were ligated. The cardinal ligaments were ligated. This was done on both sides. An incision was made anterior colpotomy incision was made and this was carried around until the cervix was removed from the vagina. The uterus and cervix were removed through the vagina. The vaginal cuff was closed in a running fashion with 0 V lock suture. Hemostasis was noted. The pelvis was irrigated. Hemostasis noted. Hemoderm was applied in the pelvis. The patient was taken out of Trendelenburg position. The pneumoperitoneum was released and the ports were removed. The skin incisions were closed with 4 O Vicryl and dermabond. The patient was extubated in operating room. The sponge count was correct x2. Patient tolerated procedure well and was taken to recovery in stable condition. Estimated Blood Loss 30 Urine Output 50 Drains No Packing No Pathology Yes (uterus and cervix) Complications No immediate complications Condition Stable [facility] Billing Surgery - Charge Forward: Surgery Billing
[2023-12-21] MEDS: SIMETHICONE 80 MG TAB.CHEW PO ×2 (07:20→12:31)
[2023-12-21] MEDS: HYDROcodone/acetaminophen (*CRX) 10-325 MG TABLET 1 TAB PO (07:20)
--- NOTE | 2023-12-21 07:33 | WPDANESPN ---
Anes - Prog Note Post-Op Date/Time: 12/21/23 07:33 Cardiovascular status: normal Respiratory status: normal Airway patency: baseline Mental status: baseline Post-Op hydration status: normal Vital Signs: Last Vital Signs Temp 36.8 C 12/21/23 04:18 Pulse 58 L 12/21/23 04:18 Resp 20 12/21/23 04:18 BP 122/65 12/21/23 04:18 Pulse Ox 98 12/21/23 04:18 O2 Del Method Room Air 12/20/23 17:05 O2 Flow Rate 10 12/20/23 15:48 Pain Score (VAS): 10 I/O: Intake & Output 12/20/23 12/20/23 12/21/23 15:59 23:59 07:59 Intake Total 50 1000 Output Total 50 1080 1950 Balance 0 80 -1950 12/20/23 11:19 Blood Type A Positive Antibody Screen Negative Post-procedural complaints: none Patient Feedback: Patient satisfied with anesthetic care.
[2023-12-21 07:35] VITALS: BP 107/63; PULSE 66; RESP 16; TEMP 37.2; O2SAT 100
[2023-12-21] MEDS: HYDROcodone/acetaminophen (*CRX) 5-325 MG TABLET 1 TAB PO (10:22)
[2023-12-21 12:31] VITALS: BP 104/56; PULSE 65; RESP 16; TEMP 37.2; O2SAT 99
--- NOTE | 2023-12-21 12:36 | PM.GYNPNOP ---
SHAPE BRICK MOLDER - A/P Assessment and plan (1) H/O: hysterectomy: Code(s): Z90.710 - Acquired absence of both cervix and uterus Status: Acute Assessment and Plan: She is doing well. Discussed her surgery with her. Encourage ambulation. Anticipate discharge later today. Discharge precautions discussed. Postoperative Procedures: Procedures Operation Date: 12/20/23 12:30 Actual Procedure Side Surgeon p Urethral Sling, Umang So MD s Robotic Laparopscopic Total Hysterectomy Harvey Vargas MD Time Spent With Patient Time: Total time spent is greater than 50% in coordination of care (as documented) at patient's floor/unit and/or counseling patient: Time with patient: less than 15 minutes SHAPE BRICK MOLDER- PN:Subj Post-Op Subjective Date/time seen: 12/21/23 0820 Interval history: She reports flatus. Tolerating oral intake. She has ambulated in room. Pain meds help pain. No chest pain or SOB. Review of Systems Review of Systems: All systems reviewed & are unremarkable except as noted in HPI and below Cardiovascular: Cardiovascular: Reports no additional cardiovascular complaints Respiratory: Respiratory: Reports no additional respiratory complaints Gastrointestinal: Gastrointestinal: Reports belching, Denies nausea and Denies vomiting Genitourinary: Genitourinary: Reports no additional female genitourinary complaints Musculoskeletal: Musculoskeletal: Reports no additional musculoskeletal complaints Exam Const: General: comfortable and no acute distress Orientation/consciousness: oriented to person, oriented to place and oriented to time Resp: Effort & Inspection: normal respiratory effort GI: GI Palp: Yes Soft to palpation Other: soft, appropriate tenderness, incisions intact, no drainage Neuro: General: oriented to person, oriented to place and oriented to time Extrem: General: no calf tenderness Psych: Mental Status: mental status grossly normal SHAPE BRICK MOLDER - PN: Obj Data Vital Signs Vital Signs: Vital Signs - 24 hr 12/20/23 15:18 12/20/23 15:33 12/20/23 15:48 Temperature 98.1 F Pulse Rate 88 86 76 Respiratory Rate 18 17 18 Blood Pressure 151/88 H 106/63 118/71 Pulse Oximetry 95 99 99 Oxygen Delivery Simple Face Mask Simple Face Mask Simple Face Mask Oxygen Flow Rate 10 10 10 12/20/23 16:03 12/20/23 16:18 12/20/23 16:33 Temperature Pulse Rate 73 70 64 Respiratory Rate 25 H 14 10 L Blood Pressure 112/72 116/66 104/63 Pulse Oximetry 94 96 97 Oxygen Delivery Room Air Room Air Room Air Oxygen Flow Rate 12/20/23 16:48 12/20/23 17:05 12/20/23 17:05 Temperature 97.7 F Pulse Rate 66 63 Respiratory Rate 80 H 18 Blood Pressure 108/65 116/75 Pulse Oximetry 96 94 Oxygen Delivery Room Air Room Air Oxygen Flow Rate 12/20/23 20:51 12/20/23 23:15 12/21/23 01:23 Temperature 98.2 F 97.9 F Pulse Rate 64 56 L Respiratory Rate 18 18 Blood Pressure 116/65 133/58 L 118/60 Pulse Oximetry 97 98 Oxygen Delivery Oxygen Flow Rate 12/21/23 04:18 12/21/23 07:35 12/21/23 12:31 Temperature 98.2 F 99 F 98.9 F Pulse Rate 58 L 66 65 Respiratory Rate 20 16 16 Blood Pressure 122/65 107/63 104/56 L Pulse Oximetry 98 100 99 Oxygen Delivery Oxygen Flow Rate Intake/Output Intake/Output: Intake & Output 12/18/23 12/19/23 12/20/23 12/21/23 23:59 23:59 23:59 23:59 Intake Total 1050 490 Output Total 1130 2620 Balance -80 -2130 Meds/Results Medications: Active Medications Generic Name Dose Route Start Last Admin Trade Name Freq PRN Reason Stop Dose Admin Hydrocodone Bitart/Acetaminophen 1 tab 12/20/23 14:53 12/21/23 10:22 Hydrocodone/Acetaminophen (*Crx) 5-325 Mg Tablet PO 1 tab Q3H PRN Administration Pain Rated 5 or Less Hydrocodone Bitart/Acetaminophen 1 tab 12/20/23 14:53 12/21/23 07:20 Hydrocodone/Acetaminophen (*Crx) 10-325 Mg Tablet PO 1 tab Q3H PRN Administration Pain Rated 6 or Greater
--- NOTE | 2023-12-21 12:44 | PM.DS ---
DS: Admitting Diagnosis Discharge Date Admitting Diagnosis Abnormal uterine bleeding DS: Discharge Diagnosis Discharge Diagnosis (1) Menorrhagia: Code(s): N92.0 - Excessive and frequent menstruation with regular cycle Status: Acute DS: Summary Hospital Course Reason for hospitalization: Planned hysterectomy Hospital Course: She was admitted for planned hysterectomy for abnormal uterine bleeding. She had an uncomplicated hysterectomy. She did well postop. She had adequate pain control and was tolerating regulare diet and ambulating on post op day 1 and was discharged to home on post op day one. Time Spent with Patient Time attestation: Total time spent providing and/or coordinating discharge services: Exam Const: General: comfortable Neck: Neck: normal visual inspection Resp: Effort & Inspection: normal respiratory effort Cardio: Rate: regular rate Rhythm: regular rhythm GI: Inspection: normal to inspection Other: incisions intact Neuro: General: oriented to person, oriented to place and oriented to time Extrem: General: normal to inspection and no calf tenderness Psych: Appearance: grossly abnormal DS: Data Data Completed and Pending Pending studies at discharge: Pending at discharge 12/20/23 14:50 Surgical [PTH] Routine Discharge Plan Discharge Patient Disposition: Home, Self-Care Discharge Instructions: Post hysterectomy discharge instructions. Patient Instructions: Laparoscopic Hysterectomy (DC) Discharge Medications: No Action cholecalciferol (vitamin D3) 25 mcg (1,000 unit) capsule 25 mcg PO DAILY sertraline 100 mg tablet 150 mg PO DAILY 90 Days Qty: 135 2RF Patient Comments: TAKES AT HS ondansetron HCl 8 mg tablet 8 mg PO Q8H PRN (Reason: nausea and vomiting) Qty: 15 0RF Probiotic 10 billion cell Capsule 10,000 mmu cells PO DAILY Fish Oil 1 tab-cap DAILY sumatriptan succinate [Imitrex] 100 mg tablet See Rx Instructions PO .COMPLEX Qty: 9 2RF Rx Instructions: take 1 tab at onset of headache; if no relief, may repeat 1 tab after at least 2 hrs; max = 2 tabs/24 hrs PO valacyclovir 500 mg tablet 500 mg PO DAILY PRN (Reason: Outbreak) Qty: 90 3RF
== END 2023-12-21 13:10 | disposition home or self-care (01) ==
LOC: ANHSURGERY 10:22 → ANHOB2 17:01
PROVIDERS: Obstetrics & Gynecology; PCP Family Medicine; Visit Provider Urology
PROC: (CPT 57288; principal; 2023-12-20 12:30)
PROC: (CPT 58550; 2023-12-20 12:30)
DX: N39.3 Stress incontinence (female) (male) (principal); N73.6 Female pelvic peritoneal adhesions (postinfective); N72 Inflammatory disease of cervix uteri; D25.1 Intramural leiomyoma of uterus; J45.909 Unspecified asthma, uncomplicated; Q27.30 Arteriovenous malformation, site unspecified; F12.90 Cannabis use, unspecified, uncomplicated; E66.9 Obesity, unspecified; Z68.37 Body mass index [BMI] 37.0-37.9, adult; Z98.890 Other specified postprocedural states; Z87.891 Personal history of nicotine dependence; Z86.79 Personal history of other diseases of the circulatory system; Z80.0 Family history of malignant neoplasm of digestive organs; Z80.3 Family history of malignant neoplasm of breast; Z82.49 Family history of ischemic heart disease and other diseases of the circulatory system
CPT/HCPCS: 57288; 58550; S2900; 36415; 86850; 86900; 86901; 88307; 99199; A9270; C1771; J0690; J1100; J1170; J1644; J1885; J2250; J2270; J2371; J2405; J2704; J3010; J7030; J7120